=== PATIENT | female | born 1995 | race Caucasian/White ===

== ENCOUNTER 2018-11-05 22:48 | Outpatient (CLI) | payer SELFPAY ==
[2018-11-05 23:39] VITALS: BP 118/76
== END 2018-11-06 01:20 | disposition home or self-care (01) ==
LOC: TRG 22:48
PROVIDERS: ATTEND Obstetrics & Gynecology
DX: O47.03 False labor before 37 completed weeks of gestation, third trimester (principal); Z3A.36 36 weeks gestation of pregnancy
CPT/HCPCS: 59025

== ENCOUNTER 2018-11-06 03:32 | Inpatient (IN) | payer OTHER ==
[2018-11-06 05:42] LABS: Hematocrit 38.1 % (30.3-42.9); Hemoglobin 12.4 gm/dl (10.1-14.3); Mean Corpuscular HGB Conc 33 % (30-34); Mean Corpuscular Volume 84 fl (79-97); Platelet Count 293 K/mm3 (140-440); Red Blood Count 4.52 M/mm3 (3.65-5.03); Red Cell Distribution Width 14.8 % (13.2-15.2)
[2018-11-06] MEDS ORDERED: AMPICILLIN/NS 2 GM/100 ML 2 GM/100 ML BAG IV ONE (06:04)
[2018-11-06] MEDS ORDERED: XYLOCAINE 2% INFILTRATI ONE (06:04)
[2018-11-06] MEDS ORDERED: BRETHINE IVP PRN (06:04)
[2018-11-06] MEDS ORDERED: BRETHINE SUB-Q PRN (06:04)
[2018-11-06] MEDS ORDERED: PITOCin/NS 20 UNIT/1000ML DRIP 20 UNITS/1,000 ML BAG IV SCH (07:00)
[2018-11-06] MEDS ORDERED: PITOCin/NS 30 UNIT/500ML 30 UNITS/500 ML BAG IV SCH (07:00)
[2018-11-06] MEDS: LACTATED RINGERS 1,000 ML IV SCH (08:00)
[2018-11-06] MEDS: PITOCin/NS 30 UNIT/500ML 30 UNITS/500 ML BAG IV SCH ×2 (08:03→10:16)
[2018-11-06] MEDS ORDERED: SUBLIMAZE ONE (09:09)
[2018-11-06] MEDS ORDERED: MARCAINE 0.25% INFILTRATI ONE (09:09)
--- NOTE | 2018-11-06 09:35 | History and Physical Report ---
History of Present Illness Date of examination: 11/06/18 Date of admission: 11/06/18 07:00 Chief complaint: Contractions and spotting History of present illness: 23yo G 3 P 0 0 2 0 at 38 weeks 6 days here with c/o UCs and spotting. She reports +FMs but denies LOF. She also reports feeling feverish with chills at home but later felt better. She is a [facility] pt who initiated care at 6 weeks gestation. Her course has been unremarkable. She has a h/o of SAB x2 and asthma (no recent attacks). LABS: Apos, Antibody Screen neg, Pap test normal, RI, VDRL neg, HBsAg neg, HIV neg, MSAFP neg, Diabetes Screen 96, GC/CT neg, GBS neg. Past History Past Medical History: asthma Past Surgical History: no surgical history Family/Genetic History: diabetes (grandparents), hypertension (maternal grand mother) Social history: single, lives with family, full code. denies: smoking, alcohol abuse, prescription drug abuse, IV drug use - Obstetrical History Expected Date of Delivery: 11/14/18 Actual Gestation: 38 Week(s) 6 Day(s) : 3 Para: 0 Hx # Term Pregnancies: 0 Number of Pregnancies: 0 Spontaneous Abortions: 2 Induced : 0 Number of Living Children: 0 Medications and Allergies Allergies Allergy/AdvReac Type Severity Reaction Status Date / Time No Known Allergies Allergy Verified 11/05/18 23:50 Active Meds: Active Medications Ephedrine Sulfate (Ephedrine Sulfate) 10 mg IV Q2M PRN PRN Reason: Hypotension Oxytocin/Sodium Chloride (Pitocin/Ns 20 Unit/1000ml Drip) 20 units in 1,000 mls @ 125 mls/hr IV DIRECT ELIZABETH Oxytocin/Sodium Chloride (Pitocin/Ns 30 Unit/500ml) 30 units in 500 mls @ 1 mls/hr IV TITR ELIZABETH; Protocol Last Admin: 11/06/18 08:03 Dose: 2 milliunits/min, 2 mls/hr Documented by: Oxytocin/Sodium Chloride (Pitocin/Ns 30 Unit/500ml) 30 units in 500 mls @ 2 ml s/hr IV TITR ELIZABETH; Protocol Lactated Ringer's (Lactated Ringers) 1,000 mls @ 125 mls/hr IV DIRECT ELIZABETH Last Admin: 11/06/18 08:00 Dose: 125 mls/hr Documented by: Mineral Oil (Mineral Oil) 30 ml PO QHS PRN PRN Reason: Constipation Terbutaline Sulfate (Brethine) 0.25 mg SUB-Q ONCE PRN PRN Reason: Hyperstimulation/Hypertonicity Terbutaline Sulfate (Brethine) 0.25 mg IVP ONCE PRN PRN Reason: Hyperstimulation/Hypertonicity Review of Systems All systems: negative - Vital Signs Vital signs: Vital Signs Pulse BP 122 H 122/67 11/06/18 03:41 11/06/18 03:41 Temp Pulse Resp BP Pulse Ox 139 H 117/56 100 11/06/18 09:30 11/06/18 09:30 11/06/18 09:26 - Obstetrical FHR: category 2 FHR comments: baseline 130, moderate variability, +accels, early & variable decels Uterine Contraction Monitor Mode: External Cervical Dilatation: 6.5 Cervical Effacement Percentage: 100 station: -1 Uterine Contraction Frequency (min): 2-3 Uterine Contraction Pattern: Regular Results Result Diagrams: 11/06/18 04:39 Abnormal lab results 11/06/18 Range/Units 04:39 WBC 20.9 H (4.5-11.0) K/mm3 All other labs normal. Assessment and Plan - Patient Problems (1) 38 weeks gestation of Current Visit: Yes Status: Acute (2) Active labor at term Current Visit: Yes Status: Acute Plan to address problem: Admit to L&D with routine labor orders Continue oxytocin for labor augmentation Anticipate vaginal delivery (3) SROM (spontaneous rupture of membranes) Current Visit: Yes Status: Acute Plan to address problem: SROM @ 08:20; clear fluid (4) Leukocytosis Current Visit: Yes Status: Acute Plan to address problem: Last temperature 98.6 Tachycardic Urine culture, blood culture, Rapid Flu ordered
--- NOTE | 2018-11-06 09:37 | Anesthesia Consultation ---
Anesthesia Consult and Med Hx Date of service: 11/06/18 - Airway Anesthetic Teeth Evaluation: Good ROM Head & Neck: Adequate Mental/Hyoid Distance: Adequate Mallampati Class: Class II Intubation Access Assessment: Good - Pulmonary Exam CTA: Yes - Cardiac Exam Cardiac Exam: RRR - Pre-Operative Health Status ASA Pre-Surgery Classification: ASA2, Emergency Proposed Anesthetic Plan: Epidural - Pre-Anesthesia Comment Pre-Anesthesia Comments: WBC 20.9, No history of fever or infection - Pulmonary Hx Asthma: Yes (Controlled) - Cardiovascular System Hx Hypertension: No - Central Nervous System Hx Seizures: No Hx Psychiatric Problems: No - Endocrine Hx Renal Disease: No Hx Hypothyroidism: No Hx Hyperthyroidism: No - Hematic Hx Anemia: No Hx Sickle Cell Disease: No - Other Systems Hx Alcohol Use: No
[2018-11-06] MEDS ORDERED: NARCAN 2 MG/2 ML IV PRN (09:39)
[2018-11-06] MEDS ORDERED: fentaNYL-BUPIV 2 MCG/ML-0.125% 200 MCG/100 ML BAG EPIDURAL SCH (10:00)
[2018-11-06] MEDS ORDERED: MINERAL OIL ONE (14:16)
[2018-11-06] MEDS ORDERED: CYTOTEC ONE (14:31)
--- NOTE | 2018-11-06 14:44 | Procedure Note ---
OB Delivery Note - Delivery Date of Delivery: 11/06/18 (14:21) Surgeon: ANA MARÍA HILL (MELY) Estimated blood loss: 300cc - Vaginal Delivery presentation: vertex Delivery position: OA Intrapartum events: meconium (terminal meconium) Delivery induction: none Delivery augmentation: pitocin Delivery monitor: external FHT, external uterine Route of delivery: (14:21) Delivery placenta: spontaneous (14:27) Episiotomy: none Delivery laceration: none Anesthesia: epidural Delivery comments: of a vigorous term 6 lbs 9 oz female on 11/06/18 @ 14:21. Baby placed [id number] on maternal abdomen. After 3 mins, umbilical cord double-clamped by MELY Hill and cut by FOB. Spontaneous delivery of placenta, [place]-side presenting at 14:27. Heavy lochia present. Fundal massage and IV Pitocin bolus initiated. Fundus F/ML/U-1. Placenta intact; was discarded. No lacerations present. Perineum intact. Mom and baby in stable condition. - Infant A at 1 minute: 8 at 5 minutes: 9 Infant Gender: Female (6 lbs 9 oz (2985 gm))
[2018-11-06] MEDS ORDERED: MILK OF MAGNESIA PO PRN (14:49)
[2018-11-06] MEDS ORDERED: LANSINOH TP PRN (14:49)
[2018-11-06] MEDS ORDERED: PHENERGAN PR PRN (14:49)
[2018-11-06] MEDS ORDERED: PHENERGAN PO PRN (14:49)
[2018-11-06] MEDS ORDERED: TUCKS PAD TP PRN (14:49)
[2018-11-06] MEDS ORDERED: ZOFRAN IV PRN (14:49)
[2018-11-06] MEDS ORDERED: BENADRYL PO PRN (14:49)
[2018-11-06] MEDS ORDERED: DULCOLAX PR PRN (14:49)
[2018-11-06] MEDS ORDERED: TYLENOL PO PRN (14:49)
[2018-11-06] MEDS ORDERED: SODIUM CHLORIDE FLUSH SYRINGE 10 ML IV NR (15:00)
[2018-11-06] MEDS: IBUPROFEN PO SCH ×2 (17:14→23:23)
[2018-11-06 18:35] LABS: Hematocrit 29.7 % (30.3-42.9); Hemoglobin 9.8 gm/dl (10.1-14.3); Mean Corpuscular HGB Conc 33 % (30-34); Mean Corpuscular Volume 84 fl (79-97); Platelet Count 276 K/mm3 (140-440); Red Blood Count 3.54 M/mm3 (3.65-5.03); Red Cell Distribution Width 14.7 % (13.2-15.2)
--- NOTE | 2018-11-06 18:50 | Event Note ---
Date: 11/06/18 Assumed care of patient at 17:45. Patient had earlier this afternoon. Patient has has tachycardia. Patient denies chest pain or shortness of breath. She states she did have an episode of chest pain earlier today but states this has resolved. Patient reports small to moderate amount of lochia. She denies cough, headache, urinary symptoms, leg pain, abdominal pain, or foul smelling vaginal discharge. Uterus is nontender to palpation and fundus is firm below umbilicus. Small amount of lochia noted. Patient's pulse has been 120s to 160s. Stat EKG and CXR ordered. CMP ordered. CBC shows WBC of 30.9, hemoglobin 9.8 of and hematocrit of 29.7 Blood cultures and urine cultures pending. Ampicillin and Gentamicin ordered. Hospitalist consult ordered and spoke with Dr. Edwards re: this patient. Also spoke with Dr. Torrse re: this patient.
[2018-11-06 19:14] LABS: Alanine Aminotransferase 6 units/L (7-56); Albumin 2.7 g/dL (3.9-5); BUN/Creatinine Ratio 9; Blood Urea Nitrogen 6 mg/dL (7-17); Calcium 7.6 mg/dL (8.4-10.2); Hemolysis Index 0
[2018-11-06 19:43] LABS: Band Neutrophils # (Manual) 3.4 K/mm3; Basophils % (Manual) 0 % (0.0-1.8); Eosinophils % (Manual) 0 % (0.0-4.3); Total Cells Counted 100
[2018-11-06 19:46] LABS: Platelet Estimate Consistent w Auto; RBC Morphology Normal
--- NOTE | 2018-11-06 20:03 | Event Note ---
Date: 11/06/18 ID consult requested/ordered per Dr. Torres's request. Dr. Torres en route to hospital. Informed him of patient's elevated WBC, vital signs, CMP results. Dr. Edwards has also been consulted.
[2018-11-06] MEDS: AMPICILLIN/NS 2 GM/100 ML 2 GM/100 ML BAG IV SCH (20:09)
[2018-11-06] MEDS: GENTAMICIN 100 MG in NACL 0.9% 100 ML IV SCH (20:09)
[2018-11-06] MEDS ORDERED: K-DUR PO ONE (20:24)
[2018-11-06] MEDS ORDERED: MINERAL OIL PO PRN (22:00)
[2018-11-06] MEDS ORDERED: K-DUR PO NR (23:00)
[2018-11-06] MEDS: FEOSOL PO SCH (23:23)
[2018-11-07] MEDS: GENTAMICIN 100 MG in NACL 0.9% 100 ML IV SCH ×2 (02:37→11:22)
[2018-11-07] MEDS: AMPICILLIN/NS 2 GM/100 ML 2 GM/100 ML BAG IV SCH ×3 (02:37→15:23)
[2018-11-07] MEDS: IBUPROFEN PO SCH ×4 (06:13→23:31)
[2018-11-07 06:14] LABS: Hematocrit 26.8 % (30.3-42.9); Hemoglobin 8.9 gm/dl (10.1-14.3)
--- NOTE | 2018-11-07 07:50 | Consultation ---
History of Present Illness - Reason for Consult Consult date: 11/06/18 Tachycardia, elevated WBC count Requesting physician: [facility] - History of Present Illness 23 YO Female with Asthma(Mild Intermittent), S/P . Consult placed for Leukocytosis and tachycardia. Pt seen and evaluated in her room. Pt resting comfortable. Pt denies fever, chills, Chest Pain, Palpitations, NVD, Back pain, Flank pain, skin rash, hematuria, unilateral leg pain, calf pain, leg swelling, shortness of breath, unintentional weight loss, night sweats, joint pain, nasal congestion, headache, vision changes, BRBPR, recent foreign travel, or ingestion of food/water from new or different sources, or known use of oral or topical steroids. No additional reported nursing complaints. Past History Past Medical History: other (Asthma) Past Surgical History: No surgical history, Other (Reviewed) Social history: single, lives with family, full code. denies: smoking, alcohol abuse, prescription drug abuse, IV drug use Family history: no significant family history, other (reviewed) Medications and Allergies Allergies Allergy/AdvReac Type Severity Reaction Status Date / Time No Known Allergies Allergy Verified 11/05/18 23:50 Active Meds: Active Medications Acetaminophen (Tylenol) 650 mg PO Q4H PRN PRN Reason: Pain MILD(1-3)/Fever >100.5/CONNOLLY Acetaminophen/Hydrocodone Bitart ([place] 5/325) 2 each PO Q6H PRN PRN Reason: Pain, Moderate (4-6) Bisacodyl (Dulcolax) 10 mg CA BID PRN PRN Reason: Constipation Diphenhydramine HCl (Benadryl) 25 mg PO Q6H PRN PRN Reason: Itching Ferrous Sulfate (Feosol) 325 mg PO BID ELIZABETH Last Admin: 11/06/18 23:23 Dose: 325 mg Documented by: Ampicillin Sodium (Ampicillin/Ns 2 Gm/100 Ml) 2 gm in 100 mls @ 100 mls/hr IV Q6HR ELIZABETH; Protocol Last Admin: 11/07/18 02:37 Dose: 100 mls/hr Documented by: Gentamicin Sulfate 100 mg/ (Sodium Chloride) 102.5 mls @ 200 mls/hr IV Q8H ELIZABETH; Protocol Last Admin: 11/07/18 02:37 Dose: 200 mls/hr Documented by: Ibuprofen (Ibuprofen) 600 mg PO Q6H ELIZABETH Last Admin: 11/07/18 06:13 Dose: 600 mg Documented by: Magnesium Hydroxide (Milk Of Magnesia) 30 ml PO HS PRN PRN Reason: Constipation Multi-Ingredient Ointment (Lansinoh) 1 applic TP PRN PRN PRN Reason: Sore Nipples Multivitamins/Iron/Calcium ( Vitamin) 1 each PO QDAY ELIZABETH Ondansetron HCl (Zofran) 4 mg IV Q8H PRN PRN Reason: Nausea And Vomiting Promethazine HCl (Phenergan) 25 mg CA Q6H PRN PRN Reason: Nausea And Vomiting Promethazine HCl (Phenergan) 25 mg PO Q6H PRN PRN Reason: Nausea And Vomiting Sodium Chloride (Sodium Chloride Flush Syringe 10 Ml) 10 ml IV PRN NR Stop: 11/07/18 14:59 Witch Elena/Glycerin (Tucks Pad) 1 each TP PRN PRN PRN Reason: Hemorrhoid/cleansing/soothing Review of Systems All systems: negative Constitutional: other (my heart is beating fast) Exam - Constitutional Vitals: Temp Pulse Resp BP Pulse Ox 98.5 F 100 H 18 104/53 99 11/07/18 04:26 11/07/18 04:26 11/07/18 06:39 11/07/18 04:26 11/07/18 04:26 General appearance: Present: no acute distress, well-nourished - EENT Eyes: Present: PERRL ENT: hearing intact, clear oral mucosa - Neck Neck: Present: supple, normal ROM - Respiratory Respiratory effort: normal Respiratory: bilateral: CTA - Cardiovascular Heart Sounds: Present: S1 & S2. Absent: rub, click - Extremities Extremities: pulses symmetrical, No edema Peripheral Pulses: within normal limits - Abdominal General gastrointestinal: Present: soft, non-tender, non-distended, normal bowel sounds Female genitourinary: Present: normal - Integumentary Integumentary: Present: clear, warm, dry - Musculoskeletal Musculoskeletal: gait normal, strength equal bilaterally - Psychiatric Psychiatric: appropriate mood/affect, intact judgment & insight - Neurologic Neurologic: CNII-XII intact, moves all extremities Results - Labs CBC & Chem 7: 11/07/18 05:49 11/06/18 18:16 Labs: Abnormal lab results 11/06/18 11/06/18 11/07/18 Range/Units 17:51 18:16 05:49 WBC 30.9 H (4.5-11.0) K/mm3 RBC 3.54 L (3.65-5.03) M/mm3 Hgb 9.8 L 8.9 L (10.1-14.3) gm/dl Hct 29.7 L D 26.8 L (30.3-42.9) % Seg Neuts % (Manual) 85.0 H (40.0-70.0) % Lymphocytes % (Manual) 2.0 L (13.4-35.0) % Seg Neutrophils # Man 26.3 H (1.8-7.7) K/mm3 Lymphocytes # (Manual) 0.6 L (1.2-5.4) K/mm3 Potassium 3.0 L (3.6-5.0) mmol/L Carbon Dioxide 18 L (22-30) mmol/L BUN 6 L (7-17) mg/dL Glucose 159 H (65-100) mg/dL Calcium 7.6 L (8.4-10.2) mg/dL ALT 6 L (7-56) units/L Alkaline Phosphatase 180 H (35-129) units/L Total Protein 5.7 L (6.3-8.2) g/dL Albumin 2.7 L (3.9-5) g/dL Assessment and Plan - Patient Problems (1) Leukocytosis Current Visit: Yes Status: Acute Plan to address problem: Discussed patient status with Attending Physician. Pt found to have leukocytosis without source of infection upon admission. On the day following admission the patient found to have increased wbc count. Records reviewed. No active infection during gestation. Pt initiated on IV antibiotics by primary team today, blood cultures pending. Discussed risks of further diagnostic testing: Primary team m ay consider CTA chest,Echo, BLE duplex, ESR,CRP and repeat CBC with differential to calculate Absolute Neutrophil count. Reevaluation in AM to assess response to therapy which was initiated at the time of consult. (2) Tachycardia Current Visit: Yes Status: Acute Plan to address problem: IVF resuscitation , pain control, supportive care.
[2018-11-07 08:51] LABS: Hematocrit 27.3 % (30.3-42.9); Hemoglobin 9.1 gm/dl (10.1-14.3); Mean Corpuscular HGB Conc 33 % (30-34); Mean Corpuscular Volume 84 fl (79-97); Platelet Count 253 K/mm3 (140-440); Red Blood Count 3.25 M/mm3 (3.65-5.03); Red Cell Distribution Width 14.8 % (13.2-15.2)
[2018-11-07] MEDS: LACTATED RINGERS 1,000 ML IV SCH (09:00)
[2018-11-07] MEDS: PRENATAL VITAMIN PO SCH (09:00)
[2018-11-07] MEDS: FEOSOL PO SCH ×2 (09:00→23:31)
[2018-11-07] MEDS ORDERED: LACTATED RINGERS 1,000 ML IV SCH (09:00)
[2018-11-07 10:21] LABS: Band Neutrophils # (Manual) 1.3 K/mm3; Basophils % (Manual) 0 % (0.0-1.8); Total Cells Counted 100
[2018-11-07 10:22] LABS: Platelet Estimate Consistent w Auto; RBC Morphology Normal
--- NOTE | 2018-11-07 16:51 | Consultation ---
History of Present Illness - Reason for Consult Consult date: 11/07/18 leukocytosis / labor Requesting physician: [facility] - History of Present Illness 23 y/o female with history of asthma admitted on 11/05/2018 with 38 weeks and uterine contractions. Patient reports that 2 hours before coming to the hospital, she experienced cold sensation and chills. She did not check her termperature. She also noted urinary frequency but no dysuria or hematuria. Denies abnormal vaginal discharge. Denies cough, SOB, cold symptoms. She received care at the [facility] at 6 weeks of gestation. course was unremarkable. Pre labs VDRL neg, HBsAg neg, HIV neg, GC/CT neg, GBS neg. On admission, temp 98.6, HR 122, R 18, BP 122/67, O2 sat 98%. WBC 20.9 then 30.9 with 85% neutrophils. UA was not obtained. RPR neg. Influenza rapid neg. She delivered via vaginal delivery on 11/06/2018 a female term baby. ID consulted due to leukocytosis. Review of Systems: General: +subjective fever, + chills, no malaise Cutaneous: no rash, pruritus Head: no headaches or injury Eyes: no changes in vision, eye pain, double vision Ears: no ear pain, ear discharge, ringing or hearing loss Nose: no nose bleeding, stuffiness Mouth & throat: no bleeding gums, no horseness, no dental problems, or swollen glands Neck: no pain, node enlargement/lumps, tyroid enlargement or tenderness Respiratory: no SOB, no cough, no WARREN, wheezing, sputum, hemoptysis, pleuritic chest pain Cardiovascular: no chest pain, leg edema, cyanosis, WARREN, orthopnea Musculoskeletal: no edema Gastrointestinal: no nausea, no vomiting, no hematemesis, diarrhea, constipa tion, melena, bright red blood in stools, fecal incontinence, jaundice Genitourinary/Reproductive: no frequent urination, dysuria, hematuria, incontinence Neurogical: no seizures, no headaches, no weakness, no paresthesias, no loss of speech or vision; no memory loss, no vertigo, no tremors, no numbness Psychiatric: stable mood; no excessive anxiety, sadness or moodiness Past History Past Medical History: other (Asthma) Past Surgical History: No surgical history, Other (Reviewed) Social history: single, lives with family, full code. denies: smoking, alcohol abuse, prescription drug abuse, IV drug use Family history: no significant family history, other (reviewed) Medications and Allergies Allergies Allergy/AdvReac Type Severity Reaction Status Date / Time No Known Allergies Allergy Verified 11/05/18 23:50 Active Meds: Active Medications Acetaminophen (Tylenol) 650 mg PO Q4H PRN PRN Reason: Pain MILD(1-3)/Fever >100.5/CONNOLLY Acetaminophen/Hydrocodone Bitart ([place] 5/325) 2 each PO Q6H PRN PRN Reason: Pain, Moderate (4-6) Bisacodyl (Dulcolax) 10 mg TN BID PRN PRN Reason: Constipation Diphenhydramine HCl (Benadryl) 25 mg PO Q6H PRN PRN Reason: Itching Ferrous Sulfate (Feosol) 325 mg PO BID ELIZABETH Last Admin: 11/07/18 09:00 Dose: 325 mg Documented by: Ampicillin Sodium (Ampicillin/Ns 2 Gm/100 Ml) 2 gm in 100 mls @ 100 mls/hr IV Q6HR ELIZABETH; Protocol Last Admin: 11/07/18 15:23 Dose: 100 mls/hr Documented by: Gentamicin Sulfate 100 mg/ (Sodium Chloride) 102.5 mls @ 200 mls/hr IV Q8H ELIZABETH; Protocol Last Admin: 11/07/18 11:22 Dose: 200 mls/hr Documented by: Lactated Ringer's (Lactated Ringers) 1,000 mls @ 125 mls/hr IV DIRECT ELIZABETH Clindamycin HCl (Cleocin 900 Mg/50 Ml) 900 mg in 50 mls @ 100 mls/hr IV Q8H ELIZABETH; Protocol Ibuprofen (Ibuprofen) 600 mg PO Q6H ELIZABETH Last Admin: 11/07/18 15:24 Dose: 600 mg Documented by: Magnesium Hydroxide (Milk Of Magnesia) 30 ml PO HS PRN PRN Reason: Constipation Multi-Ingredient Ointment (Lansinoh) 1 applic TP PRN PRN PRN Reason: Sore Nipples Multivitamins/Iron/Calcium ( Vitamin) 1 each PO QDAY ELIZABETH Last Admin: 11/07/18 09:00 Dose: 1 each Documented by: Ondansetron HCl (Zofran) 4 mg IV Q8H PRN PRN Reason: Nausea And Vomiting Promethazine HCl (Phenergan) 25 mg TN Q6H PRN PRN Reason: Nausea And Vomiting Promethazine HCl (Phenergan) 25 mg PO Q6H PRN PRN Reason: Nausea And Vomiting Witch Elena/Glycerin (Tucks Pad) 1 each TP PRN PRN PRN Reason: Hemorrhoid/cleansing/soothing Physical Examination - Physical Exam Narrative exam: General appearance: Alert in NAD Eyes: anicteric sclerae, moist conjunctivae; no lid-lag; PERRLA HENT: Atraumatic; oropharynx clear with moist mucous membranes and no mucosal ulcerations/no oral thrush; normal hard and soft palate. Lungs: CTA, with normal respiratory effort and no intercostal retractions CV: RRR no murmur Abdomen: Soft, non-tender; no masses or hepatosplenomegaly, uterus fundus at umbilicus non tender Extremities: no edema, no cyanosis Skin: No rash. Psych: Appropriate affect, alert and oriented to person, place and time. Neuro: alert and oriented x 3. Moving all extermities - Constitutional Vitals: Vital Signs Temp Pulse Resp BP Pulse Ox 97.6 F 101 H 24 109/40 99 11/07/18 12:26 11/07/18 12:26 11/07/18 12:26 11/07/18 12:26 11/07/18 12:26 Temperature -Last 24 Hours Temperature 97.6 F Temperature 97.7 F Temperature 98.5 F Temperature 98.5 F Temperature 98.5 F Temperature 99.5 F Results - Labs CBC & Chem 7: 11/07/18 08:22 11/06/18 18:16 Labs: Abnormal lab results 11/06/18 11/06/18 11/07/18 Range/Units 17:51 18:16 05:49 WBC 30.9 H (4.5-11.0) K/mm3 RBC 3.54 L (3.65-5.03) M/mm3 Hgb 9.8 L 8.9 L (10.1-14.3) gm/dl Hct 29.7 L D 26.8 L (30.3-42.9) % Seg Neuts % (Manual) 85.0 H (40.0-70.0) % Lymphocytes % (Manual) 2.0 L (13.4-35.0) % Monocytes % (Manual) (0.0-7.3) % Seg Neutrophils # Man 26.3 H (1.8-7.7) K/mm3 Lymphocytes # (Manual) 0.6 L (1.2-5.4) K/mm3 Monocytes # (Manual) (0.0-0.8) K/mm3 Eosinophils # (Manual) (0.0-0.4) K/mm3 Potassium 3.0 L (3.6-5.0) mmol/L Carbon Dioxide 18 L (22-30) mmol/L BUN 6 L (7-17) mg/dL Glucose 159 H (65-100) mg/dL Calcium 7.6 L (8.4-10.2) mg/dL ALT 6 L (7-56) units/L Alkaline Phosphatase 180 H (35-129) units/L Total Protein 5.7 L (6.3-8.2) g/dL Albumin 2.7 L (3.9-5) g/dL 11/07/18 Range/Units 08:22 WBC 25.1 H (4.5-11.0) K/mm3 RBC 3.25 L (3.65-5.03) M/mm3 Hgb 9.1 L (10.1-14.3) gm/dl Hct 27.3 L (30.3-42.9) % Seg Neuts % (Manual) (40.0-70.0) % Lymphocytes % (Manual) (13.4-35.0) % Monocytes % (Manual) 8.0 H (0.0-7.3) % Seg Neutrophils # Man 17.3 H (1.8-7.7) K/mm3 Lymphocytes # (Manual) (1.2-5.4) K/mm3 Monocytes # (Manual) 2.0 H (0.0-0.8) K/mm3 Eosinophils # (Manual) 0.8 H (0.0-0.4) K/mm3 Potassium (3.6-5.0) mmol/L Carbon Dioxide (22-30) mmol/L BUN (7-17) mg/dL Glucose (65-100) mg/dL Calcium (8.4-10.2) mg/dL ALT (7-56) units/L Alkaline Phosphatase (35-129) units/L Total Protein (6.3-8.2) g/dL Albumin (3.9-5) g/dL Assessment and Plan Micro and ID related labs: Blood culture 11/06/2018 no growth so far Urine culture 11/06/2018 negative Assessment: 23 y/o female with history of asthma admitted on 11/05/2018 with 38-week and uterine contractions. Patient reports that 2 hours before coming to the hospital, she experienced cold sensation and chills. She also noted urinary frequency but no dysuria or hematuria, now with: 1) SIRS:present on admission with tachycardia and leukocytosis; unclear source. UA was not collected. Urine culture and blood culture so far negative. Denies respiratory symptoms or recent cold. Possibilities: UTI, endometritis? (no uterine tenderness, no foul lochia), pneumonia? (no symptoms of lung infection), others ? PE. Influenza rapid neg. 2) S/p vaginal delivery. Pre labs VDRL neg, HBsAg neg, HIV neg, GC/CT neg, GBS neg. RPR neg. She delivered via vaginal delivery on 11/06/2018 a female term baby. Recommendations: follow-up blood culture obtain UA marilyn obtain CXR PA/lat continue unasyn for now stop gentamicin and clindamycin if not better will consider CTA chest Will follow. Janet Reno MD Infectious Diseases [facility] ([facility] M [phone] O [phone]
[2018-11-07 17:43] LABS: Bilirubin,Urine NEG (Negative); Blood,Urine LG (Negative); Color,Urine Yellow (Yellow); Mucus,Urine FEW /HPF; RBC,Urine > 182.0 /HPF (0.0-6.0); Urobilinogen,Urine < 2.0 mg/dL (<2.0)
[2018-11-07] MEDS ORDERED: CLEOCIN 900 MG/50 mL 900 MG/50 ML BAG IV SCH (18:00)
[2018-11-07] MEDS: UNASYN/NS 3 GM/100 ML 3 GM/100 ML BAG IV SCH (19:42)
--- NOTE | 2018-11-07 19:59 | Progress Note ---
Assessment and Plan A: day 1 S/P spontaneous vaginal delivery. Leukocytosis. Tachycardia. P: Ordered repeat blood culture and urinalysis. Attempting to get CXR result to chart. Iron supplementation. Consulted with Dr. Solorzano re: this patient and she states she agrees with plan of care. Subjective - Subjective Date of service: 11/07/18 Principal diagnosis: day 1 S/P Interval history: day 1 S/P spontaneous vaginal delivery. Patient was seen by hospitalist and ID due to leukocytosis and tachycardia. Patient denies cough, shortness of breath, chest pain, abdominal pain, leg pain, foul smelling discharge, or urinary symptoms. UA, blood culture reordered. CXR done yesterday; no result on chart; called radiology to try to locate this result. They state they will call back with result. Patient is voiding without difficulty. Ambulating well. Tolerating a regular diet without nausea or vomiting. She reports a small amount of lochia. Patient reports: appetite normal, voiding normally, pain well controlled, flatus, ambulating normally, no dizzy ambulation, no nauseated : doing well Objective - Vital Signs Latest vital signs: Vital Signs Temp Pulse Resp BP BP Pulse Ox 11/07/18 15:50 97.7 F 98 H 20 104/50 95 11/07/18 12:26 97.6 F 101 H 24 109/40 99 11/07/18 07:53 97.7 F 84 24 102/49 97 11/07/18 06:39 18 11/07/18 06:13 18 11/07/18 04:26 98.5 F 100 H 20 104/53 99 11/07/18 00:23 18 11/06/18 23:23 98.5 F 108 H 18 121/66 99 11/06/18 21:15 98.5 F 112 H 20 106/70 97 Intake and Output 11/07/18 11/07/18 11/07/18 07:59 15:59 23:59 Intake Total 442.5 700 120 Output Total 750 Balance -307.5 700 120 Intake: IV 202.5 100 AMPICILLIN/NS 2 GM/100 ML 100 100 2 gm In 100 ml @ 100 mls /hr IV Q6HR [facility] Rx#: [id number] Gentamicin 100 mg In NaCl 102.5 0.9% 100 ml @ 200 mls/hr IV Q8H [facility] Rx#:[id number] Oral 600 120 Intake, Free Water 240 Output: Urine 750 Void 750 Other: Total, Intake Amount 240 120 Total, Output Amount 750 # Voids Void 1 1 1 - Exam Abdomen: Present: normal appearance, soft, normal bowel sounds. Absent: distention, tenderness, guarding, rigidity Uterus: Present: normal, firm, fundal height below umbilicus. Absent: bogginess, tenderness Extremities: Present: normal. Absent: tenderness, edema Incision: Present: normal, dry, intact - Labs Labs: Abnormal lab results 11/07/18 11/07/18 11/07/18 Range/Units 05:49 08:22 17:05 WBC 25.1 H (4.5-11.0) K/mm3 RBC 3.25 L (3.65-5.03) M/mm3 Hgb 8.9 L 9.1 L (10.1-14.3) gm/dl Hct 26.8 L 27.3 L (30.3-42.9) % Monocytes % (Manual) 8.0 H (0.0-7.3) % Seg Neutrophils # Man 17.3 H (1.8-7.7) K/mm3 Monocytes # (Manual) 2.0 H (0.0-0.8) K/mm3 Eosinophils # (Manual) 0.8 H (0.0-0.4) K/mm3 Urine WBC (Auto) 9.0 H (0.0-6.0) /HPF
--- NOTE | 2018-11-07 20:31 | Event Note ---
Date: 11/07/18 CXR was re-ordered. EKG report discussed with Dr. Solorzano. Dr. Solorzano states no other tests or interventions are needed at this time. Lungs are clear to auscultation and heart RRR without murmur.
--- NOTE | 2018-11-07 21:16 | XRay Report ---
CHEST PA AND LATERAL VIEWS INDICATION: tachycardia. COMPARISON: None. FINDINGS: Support devices: None. Heart: Within normal limits. Lungs/Pleura: No acute pulmonary or pleural findings. IMPRESSION: 1. No significant abnormality. Signer Name: Konstantin Flores MD Signed: 11/07/2018 9:12 PM Workstation Name: [id number]
[2018-11-08 01:26] LABS: Bilirubin,Urine NEG (Negative); Blood,Urine LG (Negative); Color,Urine Yellow (Yellow); Mucus,Urine FEW /HPF; Protein,Urine <15 mg/dL mg/dL (Negative); Urobilinogen,Urine < 2.0 mg/dL (<2.0)
[2018-11-08 01:28] LABS: RBC,Urine > 182.0 /HPF (0.0-6.0)
[2018-11-08] MEDS: UNASYN/NS 3 GM/100 ML 3 GM/100 ML BAG IV SCH ×4 (01:54→20:35)
[2018-11-08] MEDS: IBUPROFEN PO SCH ×3 (05:51→23:43)
[2018-11-08 07:25] LABS: Basophils # (Auto) 0.1 K/mm3 (0.0-0.1); Basophils % (Auto) 0.4 % (0.0-1.8); Eosinophils # (Auto) 0.4 K/mm3 (0.0-0.4); Eosinophils % (Auto) 2.3 % (0.0-4.3); Hematocrit 28.3 % (30.3-42.9); Hemoglobin 9.2 gm/dl (10.1-14.3); Lymphocytes # (Auto) 3.4 K/mm3 (1.2-5.4); Lymphocytes % (Auto) 19.1 % (13.4-35.0); Mean Corpuscular HGB Conc 33 % (30-34); Mean Corpuscular Volume 85 fl (79-97); Monocytes % (Auto) 5.8 % (0.0-7.3); Platelet Count 291 K/mm3 (140-440); Red Blood Count 3.34 M/mm3 (3.65-5.03)
[2018-11-08] MEDS: PRENATAL VITAMIN PO SCH ×2 (08:12→18:00)
[2018-11-08] MEDS: FEOSOL PO SCH ×3 (08:12→23:43)
[2018-11-08 14:48] LABS: BUN/Creatinine Ratio 14; Blood Urea Nitrogen 11 mg/dL (7-17); Calcium 8.6 mg/dL (8.4-10.2); Hemolysis Index 1
--- NOTE | 2018-11-08 15:02 | Progress Note ---
Assessment and Plan Micro and ID related labs: Blood culture 11/06/2018 no growth so far Urine culture 11/06/2018 negative Assessment: 23 y/o female with history of asthma admitted on 11/05/2018 with 38-week and uterine contractions. Patient reports that 2 hours before coming to the hospital, she experienced cold sensation and chills. She also noted urinary frequency but no dysuria or hematuria, now with: 1) SIRS: tachycardia resolved and leukocytosis improving; unclear source. UA is not c/w UTI. Urine culture and blood culture so far negative. Denies respiratory symptoms or recent cold. Possibilities: endometritis? ( doubt as there is no uterine tenderness, no foul lochia), pneumonia? (no symptoms of lung infection and CXR negative), others ? PE. Influenza rapid neg. 2) S/p vaginal delivery. Pre mushtaq labs VDRL neg, HBsAg neg, HIV neg, GC/CT neg, GBS neg. RPR neg. She delivered via vaginal delivery on 11/06/2018 a female term baby. Recommendations: continue unasyn for now D2 if clinically better will stop antibiotics monitor leukocytosis Will follow. Dr Jain covering tomorrow. Janet Reno MD Infectious Diseases [employer] [facility] ([facility]) M [phone] O [phone] Subjective Date of service: 11/08/18 Principal diagnosis: day 1 S/P Interval history: Patient feels better, no new chills/fever, no urinary symptoms. Objective - Exam Narrative Exam: General appearance: Alert in NAD Eyes: anicteric sclerae, moist conjunctivae; no lid-lag; PERRLA HENT: Atraumatic; oropharynx clear with moist mucous membranes and no mucosal ulcerations/no oral thrush; normal hard and soft palate. Lungs: CTA, with normal respiratory effort and no intercostal retractions CV: RRR no murmur Abdomen: Soft, non-tender; no masses or hepatosplenomegaly, uterus fundus at u mbilicus non tender Extremities: no edema, no cyanosis Skin: No rash. Psych: Appropriate affect, alert and oriented to person, place and time. Neuro: alert and oriented x 3. Moving all extermities - Constitutional Vitals: Vital Signs Temp Pulse Resp BP Pulse Ox 97.9 F 88 18 103/49 96 11/08/18 09:02 11/08/18 09:02 11/08/18 09:02 11/08/18 09:02 11/08/18 09:02 Temperature -Last 24 Hours Temperature 97.9 F Temperature 98.2 F Temperature 98.2 F Temperature 97.7 F - Labs CBC & Chem 7: 11/08/18 06:48 11/08/18 14:05 Labs: Abnormal lab results 11/07/18 11/08/18 11/08/18 Range/Units 17:05 00:00 06:48 WBC 17.7 H (4.5-11.0) K/mm3 RBC 3.34 L (3.65-5.03) M/mm3 Hgb 9.2 L (10.1-14.3) gm/dl Hct 28.3 L (30.3-42.9) % [place] # 1.0 H (0.0-0.8) K/mm3 Seg Neutrophils % 72.4 H (40.0-70.0) % Seg Neutrophils # 12.8 H (1.8-7.7) K/mm3 Potassium (3.6-5.0) mmol/L Carbon Dioxide (22-30) mmol/L Magnesium (1.7-2.3) mg/dL Urine WBC (Auto) 9.0 H 9.0 H (0.0-6.0) /HPF 11/08/18 11/08/18 Range/Units 14:05 14:05 WBC (4.5-11.0) K/mm3 RBC (3.65-5.03) M/mm3 Hgb (10.1-14.3) gm/dl Hct (30.3-42.9) % [place] # (0.0-0.8) K/mm3 Seg Neutrophils % (40.0-70.0) % Seg Neutrophils # (1.8-7.7) K/mm3 Potassium 3.5 L (3.6-5.0) mmol/L Carbon Dioxide 21 L (22-30) mmol/L Magnesium 1.40 L (1.7-2.3) mg/dL Urine WBC (Auto) (0.0-6.0) /HPF
--- NOTE | 2018-11-08 17:31 | Progress Note ---
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: Medicine consult for management of leukocytosis, sp on 11/06, delivered a 6 pound baby girl Leukocytosis No evidence of infection, management as Hypokalemia and hypomagnesemia replete electrolytes History Interval history: Review of systems Constitutional: No fevers, no malaise, no joint pains CVS: No chest pain, no orthopnea, no dyspnea on exertion, no pedal edema GI: No abdominal pain, no diarrhea, no vomiting, no constipation Respiratory: no wheezing, no coughing Hospitalist Physical - Physical exam Narrative exam: General.: Appears well, no distress, nontoxic HEENT: Moist mucous membranes, extraocular muscles intact, no lymphadenopathy Neck: supple Cardiac: S1-S2 heard Lungs: clear to auscultation bilaterally Abdomen: soft , nontender, nondistended, bowel sounds positive Extremities: no edema clubbing or cyanosis Skin: no rash or lesions Neurologic: no gross focal deficits Psych: calm, and cooperative - Constitutional Vitals: Temp Pulse Resp BP Pulse Ox 98.0 F 77 20 105/50 99 11/08/18 15:54 11/08/18 15:54 11/08/18 15:54 11/08/18 15:54 11/08/18 15:54 General appearance: Present: no acute distress, well-nourished Results - Labs CBC & Chem 7: 11/08/18 06:48 11/08/18 14:05 Labs: Laboratory Last Values WBC 17.7 K/mm3 (4.5-11.0) H 11/08/18 06:48 RBC 3.34 M/mm3 (3.65-5.03) L 11/08/18 06:48 Hgb 9.2 gm/dl (10.1-14.3) L 11/08/18 06:48 Hct 28.3 % (30.3-42.9) L 11/08/18 06:48 MCV 85 fl (79-97) 11/08/18 06:48 MCH 28 pg (28-32) 11/08/18 06:48 MCHC 33 % (30-34) 11/08/18 06:48 RDW 15.0 % (13.2-15.2) 11/08/18 06:48 Plt Count 291 K/mm3 (140-440) 11/08/18 06:48 Lymph % (Auto) 19.1 % (13.4-35.0) 11/08/18 06:48 [place] % (Auto) 5.8 % (0.0-7.3) 11/08/18 06:48 Eos % (Auto) 2.3 % (0.0-4.3) 11/08/18 06:48 Baso % (Auto) 0.4 % (0.0-1.8) 11/08/18 06:48 Lymph # 3.4 K/mm3 (1.2-5.4) 11/08/18 06:48 [place] # 1.0 K/mm3 (0.0-0.8) H 11/08/18 06:48 Eos # 0.4 K/mm3 (0.0-0.4) 11/08/18 06:48 Baso # 0.1 K/mm3 (0.0-0.1) 11/08/18 06:48 Add Manual Diff Complete 11/07/18 08:22 Total Counted 100 11/07/18 08:22 Seg Neutrophils % 72.4 % (40.0-70.0) H 11/08/18 06:48 Seg Neuts % (Manual) 69.0 % (40.0-70.0) 11/07/18 08:22 5.0 % 11/07/18 08:22 15.0 % (13.4-35.0) 11/07/18 08:22 Reactive Lymphs % (Man) 0 % 11/07/18 08:22 8.0 % (0.0-7.3) H 11/07/18 08:22 3.0 % (0.0-4.3) 11/07/18 08:22 0 % (0.0-1.8) 11/07/18 08:22 0 % 11/07/18 08:22 0 % 11/07/18 08:22 0 % 11/07/18 08:22 0 % 11/07/18 08:22 Nucleated RBC % Not Reportable 11/07/18 08:22 Seg Neutrophils # 12.8 K/mm3 (1.8-7.7) H 11/08/18 06:48 Seg Neutrophils # Man 17.3 K/mm3 (1.8-7.7) H 11/07/18 08:22 Band Neutrophils # 1.3 K/mm3 11/07/18 08:22 3.8 K/mm3 (1.2-5.4) 11/07/18 08:22 Abs React Lymphs (Man) 0.0 K/mm3 11/07/18 08:22 2.0 K/mm3 (0.0-0.8) H 11/07/18 08:22 0.8 K/mm3 (0.0-0.4) H 11/07/18 08:22 0.0 K/mm3 (0.0-0.1) 11/07/18 08:22 0.0 K/mm3 11/07/18 08:22 0.0 K/mm3 11/07/18 08:22 0.0 K/mm3 11/07/18 08:22 Blast Cells # 0.0 K/mm3 11/07/18 08:22 WBC Morphology Not Reportable 11/07/18 08:22 Hypersegmented Neuts Not Reportable 11/07/18 08:22 Hyposegmented Neuts Not Reportable 11/07/18 08:22 Hypogranular Neuts Not Reportable 11/07/18 08:22 Not Reportable 11/07/18 08:22 Not Reportable 11/07/18 08:22 Not Reportable 11/07/18 08:22 Not Reportable 11/07/18 08:22 Not Reportable 11/07/18 08:22 Not Reportable 11/07/18 08:22 Consistent w auto 11/07/18 08:22 Not Reportable 11/07/18 08:22 Plt Clumps, EDTA Not Reportable 11/07/18 08:22 Not Reportable 11/07/18 08:22 Not Reportable 11/07/18 08:22 Not Reportable 11/07/18 08:22 Plt Morphology Comment Not Reportable 11/07/18 08:22 RBC Morphology Normal 11/07/18 08:22 Dimorphic RBCs Not Reportable 11/07/18 08:22 Not Reportable 11/07/18 08:22 Not Reportable 11/07/18 08:22 Not Reportable 11/07/18 08:22 Not Reportable 11/07/18 08:22 Not Reportable 11/07/18 08:22 Not Reportable 11/07/18 08:22 Not Reportable 11/07/18 08:22 Not Reportable 11/07/18 08:22 Not Reportable 11/07/18 08:22 Not Reportable 11/07/18 08:22 Not Reportable 11/07/18 08:22 Not Reportable 11/07/18 08:22 Not Reportable 11/07/18 08:22 Not Reportable 11/07/18 08:22 Not Reportable 11/07/18 08:22 Not Reportable 11/07/18 08:22 Not Reportable 11/07/18 08:22 Not Reportable 11/07/18 08:22 Not Reportable 11/07/18 08:22 Acanthocytes (Spur) Not Reportable 11/07/18 08:22 Rouleaux Not Reportable 11/07/18 08:22 Not Reportable 11/07/18 08:22 Not Reportable 11/07/18 08:22 Not Reportable 11/07/18 08:22 Not Reportable 11/07/18 08:22 Hem Pathologist Commnt No 11/07/18 08:22 Sodium 139 mmol/L (137-145) 11/08/18 14:05 Potassium 3.5 mmol/L (3.6-5.0) L 11/08/18 14:05 Chloride 106.2 mmol/L (98-107) 11/08/18 14:05 Carbon Dioxide 21 mmol/L (22-30) L 11/08/18 14:05 15 mmol/L 11/08/18 14:05 BUN 11 mg/dL (7-17) 11/08/18 14:05 0.8 mg/dL (0.7-1.2) 11/08/18 14:05 Estimated GFR > 60 ml/min 11/08/18 14:05 14 % 11/08/18 14:05 Glucose 76 mg/dL (65-100) 11/08/18 14:05 Calcium 8.6 mg/dL (8.4-10.2) 11/08/18 14:05 Magnesium 1.40 mg/dL (1.7-2.3) L 11/08/18 14:05 0.50 mg/dL (0.1-1.2) 11/06/18 18:16 AST 15 units/L (5-40) 11/06/18 18:16 ALT 6 units/L (7-56) L 11/06/18 18:16 180 units/L (35-129) H 11/06/18 18:16 5.7 g/dL (6.3-8.2) L 11/06/18 18:16 2.7 g/dL (3.9-5) L 11/06/18 18:16 0.9 % 11/06/18 18:16 Yellow (Yellow) 11/08/18 00:00 Clear (Clear) 11/08/18 00:00 6.0 (5.0-7.0) 11/08/18 00:00 Ur Specific [place] 1.014 (1.003-1.030) 11/08/18 00:00 <15 mg/dl mg/dL (Negative) 11/08/18 00:00 Neg mg/dL (Negative) 11/08/18 00:00 Neg mg/dL (Negative) 11/08/18 00:00 Lg (Negative) 11/08/18 00:00 Neg (Negative) 11/08/18 00:00 Neg (Negative) 11/08/18 00:00 < 2.0 mg/dL (<2.0) 11/08/18 00:00 Ur Leukocyte Esterase Tr (Negative) 11/08/18 00:00 9.0 /HPF (0.0-6.0) H 11/08/18 00:00 > 182.0 /HPF (0.0-6.0) 11/08/18 00:00 U Epithel Cells (Auto) 1.0 /HPF (0-13.0) 11/08/18 00:00 Few /HPF 11/08/18 00:00 RPR Nonreactive (Nonreactive) 11/06/18 04:39 Influenza A (Rapid) Negative (Negative) 11/06/18 10:24 Influenza B (Rapid) Negative (Negative) 11/06/18 10:24 Blood Type A POSITIVE 11/06/18 04:39 Antibody Screen Negative 11/06/18 04:39 Active Medications - Current Medications Current Medications: Generic Name Dose Route Start Last Admin Trade Name Freq PRN Reason Stop Dose Admin Acetaminophen 650 mg 11/06/18 14:49 Tylenol PO Q4H PRN Pain MILD(1-3)/Fever >100.5/CONNOLLY Acetaminophen/Hydrocodone Bitart 2 each 11/06/18 14:49 [place] 5/325 PO Q6H PRN Pain, Moderate (4-6) Bisacodyl 10 mg 11/06/18 14:49 Dulcolax [place] BID PRN Constipation Diphenhydramine HCl 25 mg 11/06/18 14:49 Benadryl PO Q6H PRN Itching Ferrous Sulfate 325 mg 11/06/18 22:00 11/08/18 08:12 Feosol PO 325 mg BID ELIZABETH Administration Lactated Ringer's 1,000 mls @ 125 mls/hr 11/07/18 09:00 Lactated Ringers IV DIRECT ELIZABETH Ampicillin Sodium/Sulbactam Sodium 3 gm in 100 mls @ 200 mls/hr 11/07/18 18:00 11/08/18 08:10 Unasyn/Ns 3 Gm/100 Ml IV 200 mls/hr Q6HR ELIZABETH Administration Protocol Magnesium Sulfate 2 gm in 50 mls @ 25 mls/hr 11/08/18 17:25 Magnesium Sulfate 2gm/50ml IV 11/08/18 19:24 ONCE ONE Ibuprofen 600 mg 11/06/18 15:00 11/08/18 05:51 Ibuprofen PO 600 mg Q6H ELIZABETH Administration Magnesium Hydroxide 30 ml 11/06/18 14:49 Milk Of Magnesia PO HS PRN Constipation Multi-Ingredient Ointment 1 applic 11/06/18 14:49 Lansinoh TP PRN PRN Sore Nipples Multivitamins/Iron/Calcium 1 each 11/07/18 10:00 11/08/18 08:12 Vitamin PO 1 each QDAY ELIZABETH Administration Ondansetron HCl 4 mg 11/06/18 14:49 Zofran IV Q8H PRN Nausea And Vomiting Promethazine HCl 25 mg 11/06/18 14:49 Phenergan [place] Q6H PRN Nausea And Vomiting Promethazine HCl 25 mg 11/06/18 14:49 Phenergan PO Q6H PRN Nausea And Vomiting Witch Elena/Glycerin 1 each 11/06/18 14:49 Tucks Pad TP PRN PRN Hemorrhoid/cleansing/soothing
[2018-11-08] MEDS ORDERED: MAGNESIUM SULFATE 2GM/50ML 2 GM/50 ML BAG IV ONE (18:00)
[2018-11-08] MEDS: NORCO 5/325 PO PRN (20:48)
--- NOTE | 2018-11-08 23:44 | Progress Note ---
Assessment and Plan A: day 2 S/P . Leukocytosis. Tachycardia-- resolved. P: Continue current management. Subjective - Subjective Date of service: 11/08/18 Principal diagnosis: day 2 S/P Interval history: day 2 S/P spontaneous vaginal delivery. Patient was seen by hospitalist and ID due to leukocytosis and tachycardia. Patient reports: appetite normal, voiding normally, pain well controlled, flatus, ambulating normally, no dizzy ambulation, no nauseated [place]: doing well Objective - Vital Signs Latest vital signs: Vital Signs Temp Pulse Resp BP BP Pulse Ox 11/08/18 15:54 98.0 F 77 20 105/50 99 11/08/18 09:02 97.9 F 88 18 103/49 96 11/08/18 06:34 18 11/08/18 06:18 104/57 11/08/18 06:15 98.2 F 73 20 98 11/08/18 05:51 18 11/08/18 00:31 18 Intake and Output 11/08/18 11/08/18 11/08/18 07:59 15:59 23:59 Intake Total 340 200 Balance 340 200 Intake: IV 100 200 UNASYN/NS 3 GM/100 ML 3 100 200 gm In 100 ml @ 200 mls/hr IV Q6HR ELIZABETH Rx#: [id number] Intake, Free Water 240 Other: # Voids Void 1 - Exam Narrative Exam: A: day 2 S/P spontaneous vaginal deivery. Doing well. Seen by ID and hospitalist. Voiding without difficulty, ambulating well, tolerating a regular diet. Cardiovascular: Present: Regular rate, Normal S1, Normal S2 Lungs: Present: Clear to auscultation Abdomen: Present: normal appearance, soft, abnormal bowel sounds. Absent: distention, tenderness, guarding, rigidity Uterus: Present: normal, firm, fundal height below umbilicus. Absent: bogginess, tenderness Extremities: Present: normal. Absent: tenderness, edema - Labs Labs: Abnormal lab results 11/08/18 11/08/18 11/08/18 Range/Units 00:00 06:48 14:05 WBC 17.7 H (4.5-11.0) K/mm3 RBC 3.34 L (3.65-5.03) M/mm3 Hgb 9.2 L (10.1-14.3) gm/dl Hct 28.3 L (30.3-42.9) % [place] # 1.0 H (0.0-0.8) K/mm3 Seg Neutrophils % 72.4 H (40.0-70.0) % Seg Neutrophils # 12.8 H (1.8-7.7) K/mm3 Potassium 3.5 L (3.6-5.0) mmol/L Carbon Dioxide 21 L (22-30) mmol/L Magnesium (1.7-2.3) mg/dL Urine WBC (Auto) 9.0 H (0.0-6.0) /HPF 11/08/18 Range/Units 14:05 WBC (4.5-11.0) K/mm3 RBC (3.65-5.03) M/mm3 Hgb (10.1-14.3) gm/dl Hct (30.3-42.9) % [place] # (0.0-0.8) K/mm3 Seg Neutrophils % (40.0-70.0) % Seg Neutrophils # (1.8-7.7) K/mm3 Potassium (3.6-5.0) mmol/L Carbon Dioxide (22-30) mmol/L Magnesium 1.40 L (1.7-2.3) mg/dL Urine WBC (Auto) (0.0-6.0) /HPF
[2018-11-09] MEDS: UNASYN/NS 3 GM/100 ML 3 GM/100 ML BAG IV SCH ×3 (02:58→14:39)
[2018-11-09] MEDS: IBUPROFEN PO SCH ×3 (04:32→14:40)
[2018-11-09] MEDS: PRENATAL VITAMIN PO SCH (09:20)
[2018-11-09] MEDS: FEOSOL PO SCH ×2 (09:20→21:56)
[2018-11-09] MEDS ORDERED: MAGNESIUM SULFATE 4GM/100ML 4 GM/100 ML BAG IV ONE (09:24)
[2018-11-09] MEDS: K-DUR PO SCH (11:41)
--- NOTE | 2018-11-09 12:23 | Progress Note ---
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: Medicine consult for management of leukocytosis, sp on 11/06, delivered a 6 pound baby girl Leukocytosis No evidence of infection, management as per ID Hypokalemia and hypomagnesemia replete electrolytes History Interval history: Review of systems Constitutional: No fevers, no malaise, no joint pains CVS: No chest pain, no orthopnea, no dyspnea on exertion, no pedal edema GI: No abdominal pain, no diarrhea, no vomiting, no constipation Respiratory: no wheezing, no coughing Hospitalist Physical - Physical exam Narrative exam: General.: Appears well, no distress, nontoxic HEENT: Moist mucous membranes, extraocular muscles intact, no lymphadenopathy Neck: supple Cardiac: S1-S2 heard Lungs: clear to auscultation bilaterally Abdomen: soft , nontender, nondistended, bowel sounds positive Extremities: no edema clubbing or cyanosis Skin: no rash or lesions Neurologic: no gross focal deficits Psych: calm, and cooperative - Constitutional Vitals: Temp Pulse Resp BP Pulse Ox 97.6 F 83 18 100/65 98 11/09/18 08:06 11/09/18 08:06 11/09/18 08:06 11/09/18 08:06 11/09/18 01:17 General appearance: Present: no acute distress, well-nourished Results - Labs CBC & Chem 7: 11/10/18 00:51 11/09/18 05:52 Labs: Laboratory Last Values WBC 17.7 K/mm3 (4.5-11.0) H 11/08/18 06:48 RBC 3.34 M/mm3 (3.65-5.03) L 11/08/18 06:48 Hgb 9.2 gm/dl (10.1-14.3) L 11/08/18 06:48 Hct 28.3 % (30.3-42.9) L 11/08/18 06:48 MCV 85 fl (79-97) 11/08/18 06:48 MCH 28 pg (28-32) 11/08/18 06:48 MCHC 33 % (30-34) 11/08/18 06:48 RDW 15.0 % (13.2-15.2) 11/08/18 06:48 Plt Count 291 K/mm3 (140-440) 11/08/18 06:48 Lymph % (Auto) 19.1 % (13.4-35.0) 11/08/18 06:48 [place] % (Auto) 5.8 % (0.0-7.3) 11/08/18 06:48 Eos % (Auto) 2.3 % (0.0-4.3) 11/08/18 06:48 Baso % (Auto) 0.4 % (0.0-1.8) 11/08/18 06:48 Lymph # 3.4 K/mm3 (1.2-5.4) 11/08/18 06:48 [place] # 1.0 K/mm3 (0.0-0.8) H 11/08/18 06:48 Eos # 0.4 K/mm3 (0.0-0.4) 11/08/18 06:48 Baso # 0.1 K/mm3 (0.0-0.1) 11/08/18 06:48 Add Manual Diff Complete 11/07/18 08:22 Total Counted 100 11/07/18 08:22 Seg Neutrophils % 72.4 % (40.0-70.0) H 11/08/18 06:48 Seg Neuts % (Manual) 69.0 % (40.0-70.0) 11/07/18 08:22 5.0 % 11/07/18 08:22 15.0 % (13.4-35.0) 11/07/18 08:22 Reactive Lymphs % (Man) 0 % 11/07/18 08:22 8.0 % (0.0-7.3) H 11/07/18 08:22 3.0 % (0.0-4.3) 11/07/18 08:22 0 % (0.0-1.8) 11/07/18 08:22 0 % 11/07/18 08:22 0 % 11/07/18 08:22 0 % 11/07/18 08:22 0 % 11/07/18 08:22 Nucleated RBC % Not Reportable 11/07/18 08:22 Seg Neutrophils # 12.8 K/mm3 (1.8-7.7) H 11/08/18 06:48 Seg Neutrophils # Man 17.3 K/mm3 (1.8-7.7) H 11/07/18 08:22 Band Neutrophils # 1.3 K/mm3 11/07/18 08:22 3.8 K/mm3 (1.2-5.4) 11/07/18 08:22 Abs React Lymphs (Man) 0.0 K/mm3 11/07/18 08:22 2.0 K/mm3 (0.0-0.8) H 11/07/18 08:22 0.8 K/mm3 (0.0-0.4) H 11/07/18 08:22 0.0 K/mm3 (0.0-0.1) 11/07/18 08:22 0.0 K/mm3 11/07/18 08:22 0.0 K/mm3 11/07/18 08:22 0.0 K/mm3 11/07/18 08:22 Blast Cells # 0.0 K/mm3 11/07/18 08:22 WBC Morphology Not Reportable 11/07/18 08:22 Hypersegmented Neuts Not Reportable 11/07/18 08:22 Hyposegmented Neuts Not Reportable 11/07/18 08:22 Hypogranular Neuts Not Reportable 11/07/18 08:22 Not Reportable 11/07/18 08:22 Not Reportable 11/07/18 08:22 Not Reportable 11/07/18 08:22 Not Reportable 11/07/18 08:22 Not Reportable 11/07/18 08:22 Not Reportable 11/07/18 08:22 Consistent w auto 11/07/18 08:22 Not Reportable 11/07/18 08:22 Plt Clumps, EDTA Not Reportable 11/07/18 08:22 Not Reportable 11/07/18 08:22 Not Reportable 11/07/18 08:22 Not Reportable 11/07/18 08:22 Plt Morphology Comment Not Reportable 11/07/18 08:22 RBC Morphology Normal 11/07/18 08:22 Dimorphic RBCs Not Reportable 11/07/18 08:22 Not Reportable 11/07/18 08:22 Not Reportable 11/07/18 08:22 Not Reportable 11/07/18 08:22 Not Reportable 11/07/18 08:22 Not Reportable 11/07/18 08:22 Not Reportable 11/07/18 08:22 Not Reportable 11/07/18 08:22 Not Reportable 11/07/18 08:22 Not Reportable 11/07/18 08:22 Not Reportable 11/07/18 08:22 Not Reportable 11/07/18 08:22 Not Reportable 11/07/18 08:22 Not Reportable 11/07/18 08:22 Not Reportable 11/07/18 08:22 Not Reportable 11/07/18 08:22 Not Reportable 11/07/18 08:22 Not Reportable 11/07/18 08:22 Not Reportable 11/07/18 08:22 Not Reportable 11/07/18 08:22 Acanthocytes (Spur) Not Reportable 11/07/18 08:22 Rouleaux Not Reportable 11/07/18 08:22 Not Reportable 11/07/18 08:22 Not Reportable 11/07/18 08:22 Not Reportable 11/07/18 08:22 Not Reportable 11/07/18 08:22 Hem Pathologist Commnt No 11/07/18 08:22 Sodium 139 mmol/L (137-145) 11/08/18 14:05 Potassium 3.5 mmol/L (3.6-5.0) L 11/09/18 05:52 Chloride 106.2 mmol/L (98-107) 11/08/18 14:05 Carbon Dioxide 21 mmol/L (22-30) L 11/08/18 14:05 15 mmol/L 11/08/18 14:05 BUN 11 mg/dL (7-17) 11/08/18 14:05 0.8 mg/dL (0.7-1.2) 11/08/18 14:05 Estimated GFR > 60 ml/min 11/08/18 14:05 14 % 11/08/18 14:05 Glucose 76 mg/dL (65-100) 11/08/18 14:05 Calcium 8.6 mg/dL (8.4-10.2) 11/08/18 14:05 Phosphorus 5.00 mg/dL (2.5-4.5) H 11/09/18 05:52 Magnesium 1.40 mg/dL (1.7-2.3) L 11/09/18 05:52 0.50 mg/dL (0.1-1.2) 11/06/18 18:16 AST 15 units/L (5-40) 11/06/18 18:16 ALT 6 units/L (7-56) L 11/06/18 18:16 180 units/L (35-129) H 11/06/18 18:16 5.7 g/dL (6.3-8.2) L 11/06/18 18:16 2.7 g/dL (3.9-5) L 11/06/18 18:16 0.9 % 11/06/18 18:16 Yellow (Yellow) 11/08/18 00:00 Clear (Clear) 11/08/18 00:00 6.0 (5.0-7.0) 11/08/18 00:00 Ur Specific [place] 1.014 (1.003-1.030) 11/08/18 00:00 <15 mg/dl mg/dL (Negative) 11/08/18 00:00 Neg mg/dL (Negative) 11/08/18 00:00 Neg mg/dL (Negative) 11/08/18 00:00 Lg (Negative) 11/08/18 00:00 Neg (Negative) 11/08/18 00:00 Neg (Negative) 11/08/18 00:00 < 2.0 mg/dL (<2.0) 11/08/18 00:00 Ur Leukocyte Esterase Tr (Negative) 11/08/18 00:00 9.0 /HPF (0.0-6.0) H 11/08/18 00:00 > 182.0 /HPF (0.0-6.0) 11/08/18 00:00 U Epithel Cells (Auto) 1.0 /HPF (0-13.0) 11/08/18 00:00 Few /HPF 11/08/18 00:00 RPR Nonreactive (Nonreactive) 11/06/18 04:39 Influenza A (Rapid) Negative (Negative) 11/06/18 10:24 Influenza B (Rapid) Negative (Negative) 11/06/18 10:24 Blood Type A POSITIVE 11/06/18 04:39 Antibody Screen Negative 11/06/18 04:39 Active Medications - Current Medications Current Medications: Generic Name Dose Route Start Last Admin Trade Name Freq PRN Reason Stop Dose Admin Acetaminophen 650 mg 11/06/18 14:49 Tylenol PO Q4H PRN Pain MILD(1-3)/Fever >100.5/CONNOLLY Acetaminophen/Hydrocodone Bitart 2 each 11/06/18 14:49 11/08/18 20:48 [place] 5/325 PO 1 each Q6H PRN Administration Pain, Moderate (4-6) Bisacodyl 10 mg 11/06/18 14:49 Dulcolax [place] BID PRN Constipation Diphenhydramine HCl 25 mg 11/06/18 14:49 Benadryl PO Q6H PRN Itching Ferrous Sulfate 325 mg 11/06/18 22:00 11/09/18 09:20 Feosol PO 325 mg BID ELIZABETH Administration Lactated Ringer's 1,000 mls @ 125 mls/hr 11/07/18 09:00 Lactated Ringers IV DIRECT ELIZABETH Ampicillin Sodium/Sulbactam Sodium 3 gm in 100 mls @ 200 mls/hr 11/07/18 18:00 11/09/18 09:20 Unasyn/Ns 3 Gm/100 Ml IV 200 mls/hr Q6HR ELIZABETH Administration Protocol Magnesium Sulfate 4 gm in 100 mls @ 25 mls/hr 11/09/18 09:24 Magnesium Sulfate 4gm/100ml IV 11/09/18 13:23 ONCE ONE Ibuprofen 600 mg 11/06/18 15:00 11/09/18 09:22 Ibuprofen PO Not Given Q6H ELIZABETH Magnesium Hydroxide 30 ml 11/06/18 14:49 Milk Of Magnesia PO HS PRN Constipation Multi-Ingredient Ointment 1 applic 11/06/18 14:49 Lansinoh TP PRN PRN Sore Nipples Multivitamins/Iron/Calcium 1 each 11/07/18 10:00 11/09/18 09:20 Vitamin PO 1 each QDAY ELIZABETH Administration Ondansetron HCl 4 mg 11/06/18 14:49 Zofran IV Q8H PRN Nausea And Vomiting Potassium Chloride 20 meq 11/09/18 10:00 11/09/18 11:41 K-Dur PO 20 meq QDAY ELIZABETH Administration Promethazine HCl 25 mg 11/06/18 14:49 Phenergan MA Q6H PRN Nausea And Vomiting Promethazine HCl 25 mg 11/06/18 14:49 Phenergan PO Q6H PRN Nausea And Vomiting Witch Elena/Glycerin 1 each 11/06/18 14:49 Tucks Pad TP PRN PRN Hemorrhoid/cleansing/soothing
--- NOTE | 2018-11-09 12:55 | Progress Note ---
Assessment and Plan Micro and ID related labs: Blood culture 11/06/2018 no growth so far Urine culture 11/06/2018 negative Assessment: 23 y/o female with history of asthma admitted on 11/05/2018 with 38-week and uterine contractions. Patient reports that 2 hours before coming to the hospital, she experienced cold sensation and chills. She also noted urinary frequency but no dysuria or hematuria, now with: 1) SIRS: Improved. Unclear source. UA is not c/w UTI. Urine culture and blood culture so far negative. Denies respiratory symptoms or recent cold. Possibilities: endometritis? ( doubt as there is no uterine tenderness, no foul lochia), pneumonia? (no symptoms of lung infection and CXR negative), others ? PE. Influenza rapid neg. 2) S/p vaginal delivery. Pre mushtaq labs VDRL neg, HBsAg neg, HIV neg, GC/CT neg, GBS neg. RPR neg. She delivered via vaginal delivery on 11/06/2018 a female term baby. Recommendations: continue unasyn for now D3 monitor leukocytosis - CBC ordered for tomorrow When discharged switch to Augmentin 875mg PO BID total 7 days ending 11/13/18 [facility] M: [phone] O:[phone] Subjective Date of service: 11/09/18 Principal diagnosis: day 2 S/P Interval history: Patient seen and examined. Reports no acute distress or generalize weakness. No fevers. Objective - Exam Narrative Exam: General appearance: Awake. Alert. No acute distress Eyes: anicteric sclerae, moist conjunctivae; no lid-lag; PERRLA HENT: Atraumatic; oropharynx clear with moist mucous membranes and no mucosal ulcerations/no oral thrush; normal hard and soft palate. Lungs: CTA, with normal respiratory effort and no intercostal retractions CV: RRR no murmur Abdomen: Soft, non-tender; no masses or hepatosplenomegaly, uterus fundus at umbilicus non tender, Extremities: no edema, no cyanosis Skin: No rash. Psych: Appropriate affect, alert and oriented to person, place and time. Neuro: alert and oriented x 3. Moving all extermities - Constitutional Vitals: Vital Signs Temp Pulse Resp BP Pulse Ox 97.6 F 83 18 100/65 98 11/09/18 08:06 11/09/18 08:06 11/09/18 08:06 11/09/18 08:06 11/09/18 01:17 Temperature -Last 24 Hours Temperature 97.6 F Temperature 97.9 F Temperature 98.0 F - Labs CBC & Chem 7: 11/08/18 06:48 11/09/18 05:52 Labs: Abnormal lab results 11/08/18 11/08/18 11/09/18 Range/Units 14:05 14:05 05:52 Potassium 3.5 L 3.5 L (3.6-5.0) mmol/L Carbon Dioxide 21 L (22-30) mmol/L Phosphorus 5.00 H (2.5-4.5) mg/dL Magnesium 1.40 L 1.40 L (1.7-2.3) mg/dL
[2018-11-09] MEDS ORDERED: DIFLUCAN PO ONE (15:23)
--- NOTE | 2018-11-09 15:32 | Progress Note ---
Assessment and Plan - Patient Problems (1) Status post normal vaginal delivery Current Visit: Yes Status: Acute Plan to address problem: PPD 3 - stable Continue routine orders Anticipate discharge in 24 hours after ID clearance (2) Leukocytosis Current Visit: Yes Status: Acute Plan to address problem: Source unknown - negative flu, blood culture, UTI. Normal Xray WBC decreasing. Repeat CBC ordered 11/10/18 Asmyptomatic Continue antibiotics therapy Co-managed w/Infectious Diseases (3) Anemia due to blood loss, acute Current Visit: Yes Status: Acute Plan to address problem: Asymptomatic Continue iron therapy Subjective - Subjective Date of service: 11/09/18 Principal diagnosis: PPD #3, s/p Interval history: see H&P, OB Delivery Procedure Note, Event Notes, Consult Note, Infectious Disease Consult and Progress Notes, Hospitalist Progress Notes and PP [employer] Progress Notes Patient reports: appetite normal, voiding normally, pain well controlled, ambulating normally, no dizzy ambulation [place]: doing well, bottle feeding Objective - Vital Signs Latest vital signs: Vital Signs Temp Pulse Resp BP BP Pulse Ox 11/09/18 08:06 97.6 F 83 18 100/65 11/09/18 01:17 97.9 F 88 20 107/59 98 11/08/18 15:54 98.0 F 77 20 105/50 99 Intake and Output 11/08/18 11/09/18 11/09/18 23:59 07:59 15:59 Intake Total 340 580 580 Balance 340 580 580 Intake: IV 100 100 100 UNASYN/NS 3 GM/100 ML 3 100 100 100 gm In 100 ml @ 200 mls/hr IV Q6HR [facility] Rx#: [id number] Oral 480 Intake, Free Water 240 480 Other: Total, Intake Amount 480 # Voids Void 2 2 - Exam Cardiovascular: Present: Regular rate Lungs: Present: Clear to auscultation Abdomen: Present: normal appearance, soft Vulva: both: normal Uterus: Present: normal, firm, fundal height below umbilicus Extremities: Present: normal Comments: scant lochia - Labs Labs: Abnormal lab results 11/09/18 Range/Units 05:52 Potassium 3.5 L (3.6-5.0) mmol/L Phosphorus 5.00 H (2.5-4.5) mg/dL Magnesium 1.40 L (1.7-2.3) mg/dL
[2018-11-09] MEDS: NORCO 5/325 PO PRN (21:54)
[2018-11-09] MEDS: AUGMENTIN 875 MG PO SCH (21:56)
[2018-11-10 01:10] LABS: Hematocrit 32.5 % (30.3-42.9); Hemoglobin 10.9 gm/dl (10.1-14.3); Mean Corpuscular HGB Conc 34 % (30-34); Mean Corpuscular Volume 84 fl (79-97); Platelet Count 398 K/mm3 (140-440); Red Blood Count 3.86 M/mm3 (3.65-5.03); Red Cell Distribution Width 14.8 % (13.2-15.2)
[2018-11-10 03:51] LABS: Total Cells Counted 100
[2018-11-10 03:53] LABS: Anisocytosis Few
[2018-11-10 03:55] LABS: Platelet Estimate Consistent w Auto
[2018-11-10] MEDS: IBUPROFEN PO SCH ×3 (06:06→10:43)
[2018-11-10] MEDS: K-DUR PO SCH (10:10)
[2018-11-10] MEDS: PRENATAL VITAMIN PO SCH (10:10)
[2018-11-10] MEDS: FEOSOL PO SCH (10:10)
[2018-11-10] MEDS: AUGMENTIN 875 MG PO SCH (10:10)
--- NOTE | 2018-11-10 11:19 | Progress Note ---
Assessment and Plan Micro and ID related labs: Blood culture 11/06/2018 no growth so far Urine culture 11/06/2018 negative Assessment: 23 y/o female with history of asthma admitted on 11/05/2018 with 38-week and uterine contractions. Patient reports that 2 hours before coming to the hospital, she experienced cold sensation and chills. She also noted urinary frequency but no dysuria or hematuria, now with: 1) SIRS: Resolved. Unclear source. UA is not c/w UTI. Urine culture and blood culture so far negative. Denies respiratory symptoms or recent cold. Possibilities: endometritis? ( doubt as there is no uterine tenderness, no foul lochia), pneumonia? (no symptoms of lung infection and CXR negative), others ? PE. Influenza rapid neg. 2) S/p vaginal delivery. Pre mushtaq labs VDRL neg, HBsAg neg, HIV neg, GC/CT neg, GBS neg. RPR neg. She delivered via vaginal delivery on 11/06/2018 a female term baby. Recommendations: continue unasyn , D4 When discharged switch to Augmentin 875mg PO BID total 7 days ending 11/13/18 [facility] M: [id number] O:[phone] Subjective Date of service: 11/10/18 Principal diagnosis: PPD #3, s/p Interval history: Patient seen and examined. Reports no acute distress or generalize weakness. No fevers. Objective - Exam Narrative Exam: General appearance: Awake. Alert. No acute distress Eyes: anicteric sclerae, moist conjunctivae; no lid-lag; PERRLA HENT: Atraumatic; oropharynx clear with moist mucous membranes and no mucosal ulcerations/no oral thrush; normal hard and soft palate. Lungs: CTA, with normal respiratory effort and no intercostal retractions CV: RRR no murmur Abdomen: Soft, non-tender; no masses or hepatosplenomegaly, uterus fundus at umbilicus non tender, Extremities: no edema, no cyanosis Skin: No rash. Psych: Appropriate affect, alert and oriented to person, place and time. Neuro: alert and oriented x 3. Moving all extermities - Constitutional Vitals: Vital Signs Temp Pulse Resp BP Pulse Ox 97.6 F 67 16 105/58 96 11/10/18 08:12 11/10/18 08:12 11/10/18 08:12 11/10/18 08:12 11/10/18 08:12 Temperature -Last 24 Hours Temperature 97.6 F Temperature 98.7 F Temperature 97.7 F - Labs CBC & Chem 7: 11/10/18 00:51 11/10/18 10:45 Labs: Abnormal lab results 11/10/18 Range/Units 00:51 Seg Neuts % (Manual) 73.0 H (40.0-70.0) % Nucleated RBC % 1.0 H (0.0-0.9) %
[2018-11-10 12:08] LABS: BUN/Creatinine Ratio 15; Blood Urea Nitrogen 9 mg/dL (7-17); Calcium 8.6 mg/dL (8.4-10.2); Hemolysis Index 9
--- NOTE | 2018-11-10 12:28 | Progress Note ---
Assessment and Plan (1) Status post normal vaginal delivery Current Visit: Yes Status: Acute Plan to address problem: PPD 4 - stable Continue routine orders Discharge home today (2) Leukocytosis Current Visit: Yes Status: Acute Plan to address problem: Source unknown - negative flu, blood culture, UTI. Normal Xray WBC now WNL Asmyptomatic CHange Antibiotics to Augmentin 875mg BID x 7 days Co-managed w/Infectious Diseases (3) Anemia due to blood loss, acute Current Visit: Yes Status: Acute Plan to address problem: Asymptomatic Continue iron therapy Subjective - Subjective Date of service: 11/10/18 Principal diagnosis: PPD #4, s/p Interval history: See H&P, delivery note, and infectious disease notes Patient reports: appetite normal, voiding normally, pain well controlled, flatus, ambulating normally Means: doing well, nursing well Objective - Vital Signs Latest vital signs: Vital Signs Temp Pulse Resp BP BP Pulse Ox 11/10/18 08:12 97.6 F 67 16 105/58 96 11/10/18 01:20 98.7 F 67 16 104/66 11/09/18 21:54 20 11/09/18 17:44 97.7 F 73 18 111/62 Intake and Output 11/09/18 11/10/18 11/10/18 23:59 07:59 15:59 Intake Total 480 720 240 Balance 480 720 240 Intake: Oral 480 240 Intake, Free Water 720 Other: Total, Intake Amount 480 120 # Voids Void 1 1 - Exam Breasts: Present: normal, Cardiovascular: Present: Regular rate, Normal S1, Normal S2, No murmurs Lungs: Present: Clear to auscultation, Normal air movement Abdomen: Present: normal appearance, soft, normal bowel sounds. Absent: distention, tenderness Vulva: both: normal Uterus: Present: firm, fundal height at umbilicus Extremities: Present: normal Deep Tendon Reflex Grade: Normal +2 - Labs Labs: Abnormal lab results 11/10/18 11/10/18 Range/Units 00:51 10:45 Seg Neuts % (Manual) 73.0 H (40.0-70.0) % Nucleated RBC % 1.0 H (0.0-0.9) % Potassium 3.5 L (3.6-5.0) mmol/L Creatinine 0.6 L (0.7-1.2) mg/dL Magnesium 1.60 L (1.7-2.3) mg/dL
--- NOTE | 2018-11-10 12:34 | Discharge Summary ---
Providers - Providers Date of Admission: 11/06/18 07:00 Date of discharge: 11/10/18 Attending physician: VESTA ENGLISH MD 11/06/18 18:44 Consult to Physician [CONS] Stat Comment: Consulting Provider: NEY VAELNTIN Physician Instructions: Reason For Exam: tachycardia, elevated wbc 11/06/18 19:58 Consult to Physician [CONS] Stat Comment: Consulting Provider: AMADO MOY Physician Instructions: Reason For Exam: elevated wbc, tachycardia Primary care physician: VESTA ENGLISH MD Hospitalization Reason for admission: active labor Delivery: Episiotomy: none Laceration: none Other procedures: none complications: other (Leukocytosis. Neg blood cultures. Neg UA culture, Neg couch port culture. WBC wnl today. ) Discharge diagnosis: IUP at term delivered [place] baby: female Condition at discharge: Good Disposition: DC-01 TO HOME OR SELFCARE Plan - Discharge Medications Prescriptions: Amoxicillin/K Clav Tab [Augmentin 875MG TAB] 1 each PO Q12HR #14 tablet - Provider Discharge Summary Activity: routine, no sex for 6 weeks, no heavy lifting 4 weeks, no strenuous exercise Diet: routine Instructions: routine Additional instructions: [] Smoking cessation referral if applicable(refer to patient education folder for contact #) [] Refer to [facility] Booklet Call your doctor immediately for: * Fever > 100.5 * Heavy vaginal bleeding ( >1 pad per hour) * Severe persistent headache * Shortness of breath * Reddened, hot, painful area to leg or breast * Drainage or odor from incision. * Keep incision clean and dry at all times and follow doctor's instructions regarding bathing/showering Take Augmentin 875mg by mouth twice daily x 7 days. - Follow up plan Follow up: VESTA ENGLISH MD [Primary Care Provider] - 14 Days
[2018-11-10] MEDS ORDERED: MAGNESIUM SULFATE 2GM/50ML 2 GM/50 ML BAG IV ONE (12:56)
[2018-11-10] MEDS ORDERED: K-DUR PO ONE (13:00)
[2018-11-10 14:33] VITALS: BP 112/66
--- NOTE | 2018-11-10 16:02 | Progress Note ---
Assessment and Plan Assessment and plan: Patient is 23-year-old woman with history of asthma as a OB service: Medicine consult for management of leukocytosis, sp on 11/06, delivered a 6 pound baby girl Leukocytosis-No evidence of infection, management as per ID Hypokalemia and hypomagnesemia-repleted electrolytes, advised to continue to take multivitamin. d/w Dr. Solorzano, ok to discharge from IM standpoint after replacing electrolytes. History Interval history: Patient was seen and examined. Follow-up on current diagnosis of Leukocytosis. No overnight events reported to me. Patient denies any chest pain, shortness breath, nausea/vomiting or severe headaches. Imaging, nursing note, chart, labs and old chart reviewed. Discussed with patient. Hospitalist Physical - Physical exam Narrative exam: Gen: WDWN, NAD, Awake, Alert, Orientated HEENT: NCAT, EOMI, PERRL, OP Clear Neck: supple, no adenopathy, no thyromegaly, no JVD CVS/Heart: RRR, normal S1S2, pulses present bilaterally Chest/Lungs: CTA B, Symmetrical chest expansion, good air entry bilaterally GI/Abdomen: soft, NTND, good bowel sounds, no guarding or rebound /Bladder: no suprapubic tenderness, no CVA or paraspinal tenderness Extermity/Skin: no c/c/e, no obvious rash MSK: FROM x 4 Neuro: CN 2-12 grossly intact, no new focal deficits Psych: calm - Constitutional Vitals: Temp Pulse Resp BP Pulse Ox 97.8 F 86 16 112/66 98 11/10/18 13:27 11/10/18 13:27 11/10/18 13:27 11/10/18 13:27 11/10/18 13:27 General appearance: Present: no acute distress, well-nourished Results - Labs CBC & Chem 7: 11/10/18 00:51 11/10/18 10:45 Labs: Laboratory Last Values WBC 10.3 K/mm3 (4.5-11.0) 11/10/18 00:51 RBC 3.86 M/mm3 (3.65-5.03) 11/10/18 00:51 Hgb 10.9 gm/dl (10.1-14.3) 11/10/18 00:51 Hct 32.5 % (30.3-42.9) 11/10/18 00:51 MCV 84 fl (79-97) 11/10/18 00:51 MCH 28 pg (28-32) 11/10/18 00:51 MCHC 34 % (30-34) 11/10/18 00:51 RDW 14.8 % (13.2-15.2) 11/10/18 00:51 Plt Count 398 K/mm3 (140-440) 11/10/18 00:51 Lymph % (Auto) 19.1 % (13.4-35.0) 11/08/18 06:48 [place] % (Auto) 5.8 % (0.0-7.3) 11/08/18 06:48 Eos % (Auto) 2.3 % (0.0-4.3) 11/08/18 06:48 Baso % (Auto) 0.4 % (0.0-1.8) 11/08/18 06:48 Lymph # 3.4 K/mm3 (1.2-5.4) 11/08/18 06:48 [place] # 1.0 K/mm3 (0.0-0.8) H 11/08/18 06:48 Eos # 0.4 K/mm3 (0.0-0.4) 11/08/18 06:48 Baso # 0.1 K/mm3 (0.0-0.1) 11/08/18 06:48 Add Manual Diff Complete 11/10/18 00:51 Total Counted 100 11/10/18 00:51 Seg Neutrophils % 72.4 % (40.0-70.0) H 11/08/18 06:48 Seg Neuts % (Manual) 73.0 % (40.0-70.0) H 11/10/18 00:51 0 % 11/10/18 00:51 21.0 % (13.4-35.0) 11/10/18 00:51 Reactive Lymphs % (Man) 0 % 11/10/18 00:51 4.0 % (0.0-7.3) 11/10/18 00:51 1.0 % (0.0-4.3) 11/10/18 00:51 1.0 % (0.0-1.8) 11/10/18 00:51 0 % 11/10/18 00:51 0 % 11/10/18 00:51 0 % 11/10/18 00:51 0 % 11/10/18 00:51 Nucleated RBC % 1.0 % (0.0-0.9) H 11/10/18 00:51 Seg Neutrophils # 12.8 K/mm3 (1.8-7.7) H 11/08/18 06:48 Seg Neutrophils # Man 7.5 K/mm3 (1.8-7.7) 11/10/18 00:51 Band Neutrophils # 0.0 K/mm3 11/10/18 00:51 2.2 K/mm3 (1.2-5.4) 11/10/18 00:51 Abs React Lymphs (Man) 0.0 K/mm3 11/10/18 00:51 0.4 K/mm3 (0.0-0.8) 11/10/18 00:51 0.1 K/mm3 (0.0-0.4) 11/10/18 00:51 0.1 K/mm3 (0.0-0.1) 11/10/18 00:51 0.0 K/mm3 11/10/18 00:51 0.0 K/mm3 11/10/18 00:51 0.0 K/mm3 11/10/18 00:51 Blast Cells # 0.0 K/mm3 11/10/18 00:51 WBC Morphology Not Reportable 11/10/18 00:51 Hypersegmented Neuts Not Reportable 11/10/18 00:51 Hyposegmented Neuts Not Reportable 11/10/18 00:51 Hypogranular Neuts Not Reportable 11/10/18 00:51 Not Reportable 11/10/18 00:51 Not Reportable 11/10/18 00:51 Not Reportable 11/10/18 00:51 Not Reportable 11/10/18 00:51 Not Reportable 11/10/18 00:51 Not Reportable 11/10/18 00:51 Consistent w auto 11/10/18 00:51 Not Reportable 11/10/18 00:51 Plt Clumps, EDTA Not Reportable 11/10/18 00:51 Not Reportable 11/10/18 00:51 Not Reportable 11/10/18 00:51 Not Reportable 11/10/18 00:51 Plt Morphology Comment Not Reportable 11/10/18 00:51 RBC Morphology Not Reportable 11/10/18 00:51 Dimorphic RBCs Not Reportable 11/10/18 00:51 Not Reportable 11/10/18 00:51 Not Reportable 11/10/18 00:51 Not Reportable 11/10/18 00:51 Few 11/10/18 00:51 Not Reportable 11/10/18 00:51 Not Reportable 11/10/18 00:51 Not Reportable 11/10/18 00:51 Not Reportable 11/10/18 00:51 Not Reportable 11/10/18 00:51 Not Reportable 11/10/18 00:51 Not Reportable 11/10/18 00:51 Not Reportable 11/10/18 00:51 Not Reportable 11/10/18 00:51 Not Reportable 11/10/18 00:51 Not Reportable 11/10/18 00:51 Not Reportable 11/10/18 00:51 Not Reportable 11/10/18 00:51 Not Reportable 11/10/18 00:51 Rare 11/10/18 00:51 Acanthocytes (Spur) Not Reportable 11/10/18 00:51 Rouleaux Not Reportable 11/10/18 00:51 Not Reportable 11/10/18 00:51 Not Reportable 11/10/18 00:51 Not Reportable 11/10/18 00:51 Not Reportable 11/10/18 00:51 Hem Pathologist Commnt No 11/10/18 00:51 Sodium 139 mmol/L (137-145) 11/10/18 10:45 Potassium 3.5 mmol/L (3.6-5.0) L 11/10/18 10:45 Chloride 104.1 mmol/L (98-107) 11/10/18 10:45 Carbon Dioxide 22 mmol/L (22-30) 11/10/18 10:45 16 mmol/L 11/10/18 10:45 BUN 9 mg/dL (7-17) 11/10/18 10:45 0.6 mg/dL (0.7-1.2) L 11/10/18 10:45 Estimated GFR > 60 ml/min 11/10/18 10:45 15 % 11/10/18 10:45 Glucose 81 mg/dL (65-100) 11/10/18 10:45 Calcium 8.6 mg/dL (8.4-10.2) 11/10/18 10:45 Phosphorus 5.00 mg/dL (2.5-4.5) H 11/09/18 05:52 Magnesium 1.60 mg/dL (1.7-2.3) L 11/10/18 10:45 0.50 mg/dL (0.1-1.2) 11/06/18 18:16 AST 15 units/L (5-40) 11/06/18 18:16 ALT 6 units/L (7-56) L 11/06/18 18:16 180 units/L (35-129) H 11/06/18 18:16 5.7 g/dL (6.3-8.2) L 11/06/18 18:16 2.7 g/dL (3.9-5) L 11/06/18 18:16 0.9 % 11/06/18 18:16 Yellow (Yellow) 11/08/18 00:00 Clear (Clear) 11/08/18 00:00 6.0 (5.0-7.0) 11/08/18 00:00 Ur Specific [place] 1.014 (1.003-1.030) 11/08/18 00:00 <15 mg/dl mg/dL (Negative) 11/08/18 00:00 Neg mg/dL (Negative) 11/08/18 00:00 Neg mg/dL (Negative) 11/08/18 00:00 Lg (Negative) 11/08/18 00:00 Neg (Negative) 11/08/18 00:00 Neg (Negative) 11/08/18 00:00 < 2.0 mg/dL (<2.0) 11/08/18 00:00 Ur Leukocyte Esterase Tr (Negative) 11/08/18 00:00 9.0 /HPF (0.0-6.0) H 11/08/18 00:00 > 182.0 /HPF (0.0-6.0) 11/08/18 00:00 U Epithel Cells (Auto) 1.0 /HPF (0-13.0) 11/08/18 00:00 Few /HPF 11/08/18 00:00 RPR Nonreactive (Nonreactive) 11/06/18 04:39 Influenza A (Rapid) Negative (Negative) 11/06/18 10:24 Influenza B (Rapid) Negative (Negative) 11/06/18 10:24 Blood Type A POSITIVE 11/06/18 04:39 Antibody Screen Negative 11/06/18 04:39 Active Medications - Current Medications Current Medications: Generic Name Dose Route Start Last Admin Trade Name Freq PRN Reason Stop Dose Admin Acetaminophen 650 mg 11/06/18 14:49 Tylenol PO Q4H PRN Pain MILD(1-3)/Fever >100.5/CONNOLLY Acetaminophen/Hydrocodone Bitart 2 each 11/06/18 14:49 11/09/18 21:54 [place] 5/325 PO 2 each Q6H PRN Administration Pain, Moderate (4-6) Amoxicillin/Clavulanate Potassium 1 each 11/09/18 22:00 11/10/18 10:10 Augmentin 875 Mg PO 1 each Q12HR ELIZABETH Administration Bisacodyl 10 mg 11/06/18 14:49 Dulcolax TN BID PRN Constipation Diphenhydramine HCl 25 mg 11/06/18 14:49 Benadryl PO Q6H PRN Itching Ferrous Sulfate 325 mg 11/06/18 22:00 11/10/18 10:10 Feosol PO 325 mg BID ELIZABETH Administration Lactated Ringer's 1,000 mls @ 125 mls/hr 11/07/18 09:00 Lactated Ringers IV DIRECT ELIZABETH Ibuprofen 600 mg 11/06/18 15:00 11/10/18 10:43 Ibuprofen PO Not Given Q6H ELIZABETH Magnesium Hydroxide 30 ml 11/06/18 14:49 Milk Of Magnesia PO HS PRN Constipation Multi-Ingredient Ointment 1 applic 11/06/18 14:49 Lansinoh TP PRN PRN Sore Nipples Multivitamins/Iron/Calcium 1 each 11/07/18 10:00 11/10/18 10:10 Vitamin PO 1 each QDAY ELIZABETH Administration Ondansetron HCl 4 mg 11/06/18 14:49 Zofran IV Q8H PRN Nausea And Vomiting Potassium Chloride 20 meq 11/09/18 10:00 11/10/18 10:10 K-Dur PO 20 meq QDAY ELIZABETH Administration Promethazine HCl 25 mg 11/06/18 14:49 Phenergan TN Q6H PRN Nausea And Vomiting Promethazine HCl 25 mg 11/06/18 14:49 Phenergan PO Q6H PRN Nausea And Vomiting Witch Elena/Glycerin 1 each 11/06/18 14:49 Tucks Pad TP PRN PRN Hemorrhoid/cleansing/soothing
== END 2018-11-10 15:52 | disposition home or self-care (01) | DRG 805 ==
LOC: TRG 03:32 → LD 07:00 → OB 16:20
PROVIDERS: ADMIT Obstetrics & Gynecology; ATTEND Obstetrics & Gynecology
PROC: 10E0XZZ Delivery of Products of Conception, External Approach (ICD-10-PCS; principal; 2018-11-06)
PROC: 3E0R3BZ Introduction of Anesthetic Agent into Spinal Canal, Percutaneous Approach (ICD-10-PCS; 2018-11-06)
PROC: 00HU33Z Insertion of Infusion Device into Spinal Canal, Percutaneous Approach (ICD-10-PCS; 2018-11-06)
DX: O77.0 Labor and delivery complicated by meconium in amniotic fluid (principal); O99.42 Diseases of the circulatory system complicating childbirth; Z37.0 Single live birth; R65.10 Systemic inflammatory response syndrome (SIRS) of non-infectious origin without acute organ dysfunction; O23.43 Unspecified infection of urinary tract in pregnancy, third trimester; D62 Acute posthemorrhagic anemia; O99.52 Diseases of the respiratory system complicating childbirth; E87.6 Hypokalemia; R00.0 Tachycardia, unspecified; J45.909 Unspecified asthma, uncomplicated; E83.42 Hypomagnesemia; O90.81 Anemia of the puerperium; Z3A.38 38 weeks gestation of pregnancy
CPT/HCPCS: 36415; 71046; 80048; 80053; 81001; 83735; 84100; 84132; 85007; 85014; 85018; 85025; 85027; 86592; 86850; 86900; 86901; 87040; 87086; 87400; 93005; 93010; G0378; J0290; J0295; J1580; J2590; J3010; J3475; J7120